=== PATIENT | male | born 1995 | race African-American/Black ===

== ENCOUNTER 2017-11-13 14:50 | Emergency (ER) | payer OTHER ==
[~2017-11-13] VITALS: Ht 177.8 cm; Wt 83.2 kg
[2017-11-13 14:55] VITALS: TEMP 98.7
[2017-11-13] MEDS ORDERED: PREDNISONE20 MG PO (17:58)
[2017-11-13 18:17] VITALS: BP 125/66; PULSE 71
== END 2017-11-13 18:21 | disposition home or self-care (01) ==
LOC: COL.ER 14:50
DX: M79.674 Pain in right toe(s) (principal); M10.9 Gout, unspecified; F17.200 Nicotine dependence, unspecified, uncomplicated